=== PATIENT | female | born 1945 | race Caucasian/White ===

== ENCOUNTER 2017-03-12 17:28 | Observation (INO) | payer OTHER ==
[2017-03-12 17:41] VITALS: BMI 25.0
[2017-03-12 18:33] LABS: BASOPHIL 1.1 % (0-2.0); EOSINOPHIL 0.3 % (0-4.5); MCH 25.4 pg (25.7-33.7); MCHC 32.2 g/dl (32.0-36.0); MEAN CELL VOLUME 78.9 fl (80-96); MEAN PLT VOLUME 7.4 fl (7.5-11.1); NEUTROPHILS 67.2 % (42.8-82.8); PLATELET COUNT 236 K/MM3 (134-434); RDW 19.6 % (11.6-15.6); WHITE BLOOD COUNT 4.7 K/mm3 (4.0-10.0)
[2017-03-12 18:46] LABS: INR 1.07 (0.82-1.09); PROTHROMBIN TIME (PATIENT) 12.1 SEC (9.98-11.88)
[2017-03-12 18:56] LABS: ALBUMIN 3.5 g/dl (3.4-5.0); ANION GAP 9 (8-16); BILIRUBIN,TOTAL 0.4 mg/dL (0.2-1.0); CALCIUM 8.6 mg/dL (8.5-10.1); CO2 24 mmol/L (21-32); CREATININE 0.9 mg/dL (0.55-1.02); GLUCOSE,RANDOM 143 mg/dL (74-106); MAGNESIUM 1.3 mg/dL (1.8-2.4); SGOT/AST 12 U/L (15-37); SGPT/ALT 23 U/L (12-78); TOT PROT 6.2 g/dl (6.4-8.2)
[2017-03-12 18:59] LABS: ALK PHOS 53 U/L (45-117); CPK 26 IU/L (26-192); TROPONIN I < 0.02 ng/ml (0.00-0.05)
--- NOTE | 2017-03-12 20:50 | PDOC ---
History of Present Illness - General History Source: Patient, Family Exam Limitations: No Limitations <Tomasz Gerber - Last Filed: 03/12/17 20:50> <Sabra Mckeon - Last Filed: 03/13/17 02:00> - General Chief Complaint: Syncope/Near Syncope Stated Complaint: Syncope/Near Syncope Time Seen by Provider: 03/12/17 17:40 - History of Present Illness Initial Comments: 03/12/17 20:50 The patient is a 71 year old female brought via EMS, with a significant past medical history of Ovarian CA (chemo last week), HTN and anemia, who presents to the emergency department after a syncope episode today. She reports that today she exerted herself more than shes had during her chemo treatment. She notes that she was out shopping with her daughter when she became weak and lightheaded just prior to losing consciousness. According to the daughter, the patient went in and out of consciousness a total of 3 times. The daughter denies any post ictal period and the patient notes that she does not remember much. She states that she has been anemic during the 18 week time period she was receiving chemo, and thus has received a blood transfusion twice. The patient denies chest pain, shortness of breath, headache, fever, chills, nausea, vomit, diarrhea and constipation. Denies dysuria, frequency, urgency and hematuria. Family history: Father; Colon CA, Sister; Brain CA Allergies: None Past surgical history: Total hysterectomy Social history: No alcohol, tobacco or drug use reported (Tomasz Gerber) Past History <Tomasz Gerber - Last Filed: 03/12/17 20:50> - Past Medical History Cancer: Yes (ovarian) COPD: No HTN: Yes - Suicide/Smoking/Psychosocial Hx Smoking History: Former smoker Have you smoked in the past 12 months: No If you are a former smoker, when did you quit?: 1.5 years ago Information on smoking cessation initiated: No <Sabra Mckeon - Last Filed: 03/13/17 02:00> - Past Medical History Allergies/Adverse Reactions: Allergies Allergy/AdvReac Type Severity Reaction Status Date / Time No Known Allergies Allergy Verified 03/12/17 18:40 Home Medications: Ambulatory Orders Atorvastatin Ca [Lipitor] 20 mg PO HS 03/12/17 Azilsartan Medoxomil [Edarbi] 80 mg PO DAILY 03/12/17 Famotidine [Pepcid] 40 mg PO DAILY 03/12/17 Iron Polysaccharide Complex [Ferrex 150] 150 mg PO DAILY 03/12/17 Review of Systems - Review of Systems Able to Perform ROS?: Yes <Tomasz Gerber - Last Filed: 03/12/17 20:50> <Sabra Mckeon - Last Filed: 03/13/17 02:00> - Review of Systems Comments:: 03/12/17 20:51 GENERAL/CONSTITUTIONAL: (+) Weakness. No fever or chills. HEAD, EYES, EARS, NOSE AND THROAT: No change in vision. No ear pain or discharge. No sore throat.- CARDIOVASCULAR: (+) Lightheadedness and syncope. No chest pain or shortness of breath RESPIRATORY: No cough, wheezing, or hemoptysis. GASTROINTESTINAL: No nausea, vomiting, diarrhea or constipation. GENITOURINARY: No dysuria, frequency, or change in urination. MUSCULOSKELETAL: No joint or muscle swelling or pain. No neck or back pain. SKIN: No rash NEUROLOGIC: No headache, vertigo, or change in strength/sensation. ENDOCRINE: No increased thirst. No abnormal weight change HEMATOLOGIC/LYMPHATIC: No anemia, easy bleeding, or history of blood clots. ALLERGIC/IMMUNOLOGIC: No hives or skin allergy. (Tomasz Gerber) *Physical Exam <Tomasz Gerber - Last Filed: 03/12/17 20:50> <Sabra Mckeon - Last Filed: 03/13/17 02:00> - Vital Signs Last Vital Signs Temp Pulse Resp BP Pulse Ox 98.3 F 71 17 133/75 98 03/12/17 17:37 03/12/17 22:36 03/12/17 22:36 03/12/17 22:36 03/12/17 21:00 - Physical Exam Comments: 03/12/17 20:51 GENERAL: Awake, alert, and fully oriented, in no acute distress HEAD: No signs of trauma, normocephalic, atraumatic EYES: PERRLA, EOMI, sclera anicteric, conjunctiva clear ENT: Auricles normal inspection, hearing grossly normal, nares patent, oropharynx clear without exudates. Moist mucosa NECK: Normal ROM, supple, no lymphadenopathy, JVD, or masses LUNGS: No distress, speaks full sentences, clear to auscultation bilaterally HEART: Regular rate and rhythm, normal S1 and S2, no murmurs, rubs or gallops, peripheral pulses normal and equal bilaterally. ABDOMEN: Soft, nontender, normoactive bowel sounds. No guarding, no rebound. No masses EXTREMITIES : Normal inspection, Normal range of motion, no edema. No clubbing or cyanosis. NEUROLOGICAL: Cranial nerves II through XII grossly intact. Normal speech, normal gait, no focal sensorimotor deficits SKIN: Warm, Dry, normal turgor, no rashes or lesions noted. (Tomasz Gerber) ED Treatment Course - LABORATORY CBC & Chemistry Diagram: 03/12/17 18:11 03/12/17 18:11 <Tomasz Gerber - Last Filed: 03/12/17 20:50> - LABORATORY CBC & Chemistry Diagram: 03/12/17 18:11 03/12/17 18:11 <Sabra Mckeon - Last Filed: 03/13/17 02:00> - ADDITIONAL ORDERS Additional order review: Laboratory Results 03/12/17 03/12/17 18:11 18:11 PT with INR 12.10 H INR 1.07 Sodium 142 Potassium 4.4 Chloride 109 H Carbon Dioxide 24 Anion Gap 9 BUN 20 H Creatinine 0.9 Creat Clearance w eGFR > 60 Random Glucose 143 H Calcium 8.6 Magnesium 1.3 L Total Bilirubin 0.4 AST 12 L ALT 23 Alkaline Phosphatase 53 Creatine Kinase 26 Troponin I < 0.02 Total Protein 6.2 L Albumin 3.5 03/12/17 18:11 RBC 3.27 L MCV 78.9 L MCHC 32.2 RDW 19.6 H MPV 7.4 L Neutrophils % 67.2 Lymphocytes % 23.3 Monocytes % 8.1 Eosinophils % 0.3 Basophils % 1.1 - RADIOLOGY Radiology Studies Ordered: Category Date Time Status HEAD CT WITHOUT CONTRAST [CT] Stat CT Scan 03/12/17 18:08 Completed CHEST - PA [RAD] Stat Radiology 03/12/17 18:07 Completed Medical Decision Making <Tomasz Gerber - Last Filed: 03/12/17 20:50> <Sabra Mckeon - Last Filed: 03/13/17 02:00> - Medical Decision Making 03/13/17 01:56 71-year-old female brought in by ambulance after having a witnessed syncopal episode. The patient was seen earlier today and her hospitalist medical director office. She finished her 18th week of came on , March 08 for her ovarian cancer. Patient states that she was shopping with her daughter and became very flushed and sat down. Her daughter witnessed her unresponsive. Her eyes rolled back in her head. Her daughter said that she seemed to be gasping for air and grunting and shaking. This stopped and then repeated. That episode lasted less than 2 minutes and when the patient became responsive. She cannot recall anything. There was no head trauma. EKG did not show any evidence of acute ischemia on her first troponin was negative. CAT scan of the head did not show any masses or edema or shift or bleed or acute infarct. Patient did not have any neurological deficits. I spoke with Dr. Morgan who is covering for Dr. Lopez, the patient's oncologist, and he said sometimes there can have atypical seizures with chemotherapy, but the patient finished her chemotherapy on . Case is discussed with the hospitalist and admitted to telemetry. I spoke with the neurologist, Dr. Jaeger who will consult on this patient in the morning -ekg has no evidence of acute ischemia.neg trop imp sync pe (Sabra Mckeon) *DC/Admit/Observation/Transfer <Tomasz Gerber - Last Filed: 03/12/17 20:50> - Discharge Dispostion Admit: Yes <Sabra Mckeon - Last Filed: 03/13/17 02:00> Diagnosis at time of Disposition: Syncope Qualifiers: Syncope type: unspecified Qualified Code(s): R55 - Syncope and collapse Ovarian cancer Qualifiers: Laterality: unspecified laterality Qualified Code(s): C56.9 - Malignant neoplasm of unspecified ovary - Attestations Scribe Attestion: 03/12/17 20:51 Documentation prepared by Tomasz Gerber, acting as biomedical field service engineer for Sabra Mckeon MD (Tomasz Gerber)
--- NOTE | 2017-03-12 20:58 | HP ---
CHIEF COMPLAINT: PCP: HISTORY OF PRESENT ILLNESS: ER course was notable for: (1) (2) (3) Recent Travel: PAST MEDICAL HISTORY: PAST SURGICAL HISTORY: Social History: Smoking: Alcohol: Drugs: Family History: Allergies No Known Allergies Allergy (Verified 03/12/17 18:40) HOME MEDICATIONS: Home Medications Medication Instructions Recorded Atorvastatin Ca [Lipitor] 20 mg PO HS 03/12/17 Azilsartan Medoxomil [Edarbi] 80 mg PO DAILY 03/12/17 Famotidine [Pepcid] 40 mg PO DAILY 03/12/17 Iron Polysaccharide Complex 150 mg PO DAILY 03/12/17 [Ferrex 150] REVIEW OF SYSTEMS CONSTITUTIONAL: Absent: fever, chills, diaphoresis, generalized weakness, malaise, loss of appetite, weight change HEENT: Absent: rhinorrhea, nasal congestion, throat pain, throat swelling, difficulty swallowing, mouth swelling, ear pain, eye pain, visual changes CARDIOVASCULAR: Absent: chest pain, syncope, palpitations, irregular heart rate, lightheadedness , peripheral edema RESPIRATORY: Absent: cough, shortness of breath, dyspnea with exertion, orthopnea, wheezing, stridor, hemoptysis GASTROINTESTINAL: Absent: abdominal pain, abdominal distension, nausea, vomiting, diarrhea, constipation, melena, hematochezia GENITOURINARY: Absent: dysuria, frequency, urgency, hesitancy, hematuria, flank pain, genital pain MUSCULOSKELETAL: Absent: myalgia, arthralgia, joint swelling, back pain, neck pain SKIN: Absent: rash, itching, pallor HEMATOLOGIC/IMMUNOLOGIC: Absent: easy bleeding, easy bruising, lymphadenopathy, frequent infections ENDOCRINE: Absent: unexplained weight gain, unexplained weight loss, heat intolerance, cold intolerance NEUROLOGIC: Absent: headache, focal weakness or paresthesias, dizziness, unsteady gait, seizure, mental status changes, bladder or bowel incontinence PSYCHIATRIC: Absent: anxiety, depression, suicidal or homicidal ideation, hallucinations. PHYSICAL EXAMINATION Vital Signs - 24 hr 03/12/17 17:37 Temperature 98.3 F Pulse Rate 77 Respiratory 18 Rate Blood Pressure 120/84 O2 Sat by Pulse 100 Oximetry (%) GENERAL: Awake, alert, and fully oriented, in no acute distress. HEAD: Normal with no signs of trauma. EYES: Pupils equal, round and reactive to light, extraocular movements intact, sclera anicteric, conjunctiva clear. No lid lag. EARS, NOSE, THROAT: Ears normal, nares patent, oropharynx clear without exudates. Moist mucous membranes. NECK: Normal range of motion, supple without lymphadenopathy, JVD, or masses. LUNGS: Breath sounds equal, clear to auscultation bilaterally. No wheezes, and no crackles. No accessory muscle use. HEART: Regular rate and rhythm, normal S1 and S2 without murmur, rub or gallop. ABDOMEN: Soft, nontender, not distended, normoactive bowel sounds, no guarding, no rebound, no masses. No hepatomegaly or splenomegaly. MUSCULOSKELETAL: Normal range of motion at all joints. No bony deformities or tenderness. No CVA tenderness. UPPER EXTREMITIES: 2+ pulses, warm, well-perfused. No cyanosis. No clubbing. No peripheral edema. LOWER EXTREMITIES: 2+ pulses, warm, well-perfused. No calf tenderness. No peripheral edema. NEUROLOGICAL: Cranial nerves II-XII intact. Normal speech. Normal gait. PSYCHIATRIC: Cooperative. Good eye contact. Appropriate mood and affect. SKIN: Warm, dry, normal turgor, no rashes or lesions noted, normal capillary refill. Laboratory Results - last 24 hr 03/12/17 03/12/17 03/12/17 18:11 18:11 18:11 WBC 4.7 RBC 3.27 L Hgb 8.3 L Hct 25.8 L MCV 78.9 L MCH 25.4 L MCHC 32.2 RDW 19.6 H Plt Count 236 MPV 7.4 L Neutrophils % 67.2 Lymphocytes % 23.3 Monocytes % 8.1 Eosinophils % 0.3 Basophils % 1.1 PT with INR 12.10 H INR 1.07 Sodium 142 Potassium 4.4 Chloride 109 H Carbon Dioxide 24 Anion Gap 9 BUN 20 H Creatinine 0.9 Creat Clearance w eGFR > 60 Random Glucose 143 H Calcium 8.6 Magnesium 1.3 L Total Bilirubin 0.4 AST 12 L ALT 23 Alkaline Phosphatase 53 Creatine Kinase 26 Troponin I < 0.02 Total Protein 6.2 L Albumin 3.5 ASSESSMENT/PLAN:
--- NOTE | 2017-03-12 22:56 | HP ---
Admitting History and Physical - Primary Care Physician PCP: Dedra Oneill - Admission History of Present Illness: 71 year old female brought via EMS, with a significant past medical history of Ovarian CA (chemo last week), HTN and anemia, who presents to the emergency department after a syncope episode today. She reports that today she exerted herself more than shes had during her chemo treatment. She notes that she was out shopping with her daughter when she became weak and lightheaded just prior to losing consciousness. According to the daughter, the patient went in and out of consciousness a total of 3 times. The daughter denies any post ictal period and the patient notes that she does not remember much. She states that she has been anemic during the 18 week time period she was receiving chemo, and thus has received a blood transfusion twice. - Past Medical History Cardiovascular: Yes: HTN Additional Past Medical History: ovarian ca - Smoking History Smoking history: Former smoker Have you smoked in the past 12 months: No If you are a former smoker, when did you quit?: 1.5 years ago Home Medications - Allergies Allergies/Adverse Reactions: Allergies Allergy/AdvReac Type Severity Reaction Status Date / Time No Known Allergies Allergy Verified 03/12/17 18:40 - Home Medications Home Medications: Ambulatory Orders Atorvastatin Ca [Lipitor] 20 mg PO HS 03/12/17 Azilsartan Medoxomil [Edarbi] 80 mg PO DAILY 03/12/17 Famotidine [Pepcid] 40 mg PO DAILY 03/12/17 Iron Polysaccharide Complex [Ferrex 150] 150 mg PO DAILY 03/12/17 Physical Examination Vital Signs: Vital Signs Temperature 98.3 F 03/12/17 17:37 Pulse Rate 71 03/12/17 22:36 Respiratory Rate 17 03/12/17 22:36 Blood Pressure 133/75 03/12/17 22:36 O2 Sat by Pulse Oximetry (%) 98 03/12/17 21:00 Constitutional: Yes: No Distress HENT: Yes: Atraumatic Neck: Yes: Supple Cardiovascular: Yes: Regular Rate and Rhythm Respiratory: Yes: CTA Bilaterally Gastrointestinal: Yes: Normal Bowel Sounds Extremities: Yes: WNL Edema: No Peripheral Pulses WNL: Yes Neurological: Yes: Alert, Oriented Labs: CBC, BMP 03/12/17 18:11 03/12/17 18:11 Imaging - Results X-ray: Report Reviewed Cat Scan: Report Reviewed Problem List - Problems (1) Ovarian cancer Assessment/Plan: s/p chemo stable Code(s): C56.9 - MALIGNANT NEOPLASM OF UNSPECIFIED OVARY Qualifiers: Laterality: unspecified laterality Qualified Code(s): C56.9 - Malignant neoplasm of unspecified ovary (2) Syncope Assessment/Plan: resolved feeling better Code(s): R55 - SYNCOPE AND COLLAPSE Qualifiers: Syncope type: unspecified Qualified Code(s): R55 - Syncope and collapse (3) HTN (hypertension) Assessment/Plan: will start from tomorrow Code(s): I10 - ESSENTIAL (PRIMARY) HYPERTENSION Qualifiers: Hypertension type: essential hypertension Qualified Code(s): I10 - Essential (primary) hypertension (4) Hypercholesterolemia Assessment/Plan: on meds satble Code(s): E78.00 - PURE HYPERCHOLESTEROLEMIA, UNSPECIFIED Assessment/Plan Laboratory Tests 03/12/17 03/12/17 03/12/17 18:11 18:11 18:11 WBC 4.7 RBC 3.27 L Hgb 8.3 L Hct 25.8 L MCV 78.9 L MCH 25.4 L MCHC 32.2 RDW 19.6 H Plt Count 236 MPV 7.4 L Neutrophils % 67.2 Lymphocytes % 23.3 Monocytes % 8.1 Eosinophils % 0.3 Basophils % 1.1 PT with INR 12.10 H INR 1.07 Sodium 142 Potassium 4.4 Chloride 109 H Carbon Dioxide 24 Anion Gap 9 BUN 20 H Creatinine 0.9 Creat Clearance w eGFR > 60 Random Glucose 143 H Calcium 8.6 Magnesium 1.3 L Total Bilirubin 0.4 AST 12 L ALT 23 Alkaline Phosphatase 53 Creatine Kinase 26 Troponin I < 0.02 Total Protein 6.2 L Albumin 3.5 Active Medications Generic Name Dose Route Start Last Admin Trade Name Freq PRN Reason Stop Dose Admin Atorvastatin Calcium 20 mg 03/13/17 22:00 Lipitor - PO HS ROXANNA Heparin Sodium (Porcine) 5,000 unit 03/13/17 10:00 Heparin - SQ BID ROXANNA Non-Formulary Medication 80 mg 03/13/17 10:00 Azilsartan Medoxomil [Edarbi] PO DAILY ROXANNA Non-Formulary Medication 40 mg 03/13/17 10:00 Famotidine [Pepcid] PO DAILY [facility] Polysaccharide Iron Complex 150 mg 03/13/17 10:00 Niferex-150 - PO DAILY ROXANNA
[2017-03-13 02:03] LABS: CPK 27 IU/L (26-192); TROPONIN I < 0.02 ng/ml (0.00-0.05)
[2017-03-13 07:05] LABS: BASOPHIL 2.3 % (0-2.0); EOSINOPHIL 0.4 % (0-4.5); MCH 25.6 pg (25.7-33.7); MCHC 32.4 g/dl (32.0-36.0); MEAN PLT VOLUME 7.2 fl (7.5-11.1); PLATELET COUNT 213 K/MM3 (134-434); RDW 19.6 % (11.6-15.6); WHITE BLOOD COUNT 3.4 K/mm3 (4.0-10.0)
[2017-03-13 07:45] LABS: ALBUMIN 3.2 g/dl (3.4-5.0); ANION GAP 9 (8-16); BILIRUBIN,TOTAL 0.6 mg/dL (0.2-1.0); CALCIUM 8.8 mg/dL (8.5-10.1); CO2 23 mmol/L (21-32); CREATININE 0.7 mg/dL (0.55-1.02); GLUCOSE,RANDOM 100 mg/dL (74-106); SGOT/AST 11 U/L (15-37); SGPT/ALT 19 U/L (12-78)
[2017-03-13 07:46] LABS: ALK PHOS 46 U/L (45-117); TOT PROT 5.8 g/dl (6.4-8.2)
[2017-03-13 08:33] LABS: CPK 22 IU/L (26-192); TROPONIN I < 0.02 ng/ml (0.00-0.05)
[2017-03-13] MEDS ORDERED: PATIENT'S OWN MEDICATION (NON-FORMULARY) (Azilsartan Medoxomil [Edarbi] 80 MG) PO SCH (10:00)
--- NOTE | 2017-03-13 10:21 | CONSULT ---
Consult - text type - Consultation Consultation Note: Neurology History of Present Illness The patient is a 71 year old female brought via EMS, with a significant past medical history of Ovarian CA (chemo last week), HTN and anemia, who presents to the emergency department after a syncope episode yestreday. She reported that she exerted herself more than shes had during her chemo treatment. She notes that she was out shopping with her daughter when she became weak and lightheaded just prior to losing consciousness. According to the daughter, the patient went in and out of consciousness a total of 3 times. The daughter denies any post ictal period and the patient notes that she does not remember much. She states that she has been anemic during the 18 week time period she was receiving chemo, and thus has received a blood transfusion twice. She does not have a history of seizures. CT head reviewed and without acute changes. Patient at baseline and no deficits. Past History - Past Medical History Cancer: Yes (ovarian) COPD: No HTN: Yes - Suicide/Smoking/Psychosocial Hx Smoking History: Former smoker Have you smoked in the past 12 months: No If you are a former smoker, when did you quit?: 1.5 years ago Information on smoking cessation initiated: No - Past Medical History Allergies/Adverse Reactions: Allergies Allergy/AdvReac Type Severity Reaction Status Date / Time No Known Allergies Allergy Verified 03/12/17 18:40 Home Medications: Ambulatory Orders Atorvastatin Ca [Lipitor] 20 mg PO HS 03/12/17 Azilsartan Medoxomil [Edarbi] 80 mg PO DAILY 03/12/17 Famotidine [Pepcid] 40 mg PO DAILY 03/12/17 Iron Polysaccharide Complex [Ferrex 150] 150 mg PO DAILY 03/12/17 Review of Systems GENERAL/CONSTITUTIONAL: (+) Weakness. No fever or chills. HEAD, EYES, EARS, NOSE AND THROAT: No change in vision. No ear pain or discharge. No sore throat.- CARDIOVASCULAR: (+) Lightheadedness and syncope. No chest pain or shortness of breath RESPIRATORY: No cough, wheezing, or hemoptysis. GASTROINTESTINAL: No nausea, vomiting, diarrhea or constipation. GENITOURINARY: No dysuria, frequency, or change in urination. MUSCULOSKELETAL: No joint or muscle swelling or pain. No neck or back pain. SKIN: No rash NEUROLOGIC: No headache, vertigo, or change in strength/sensation. ENDOCRINE: No increased thirst. No abnormal weight change HEMATOLOGIC/LYMPHATIC: No anemia, easy bleeding, or history of blood clots. ALLERGIC/IMMUNOLOGIC: No hives or skin allergy. *Physical Exam Vital Signs Temperature 98.3 F 03/12/17 17:37 Pulse Rate 86 03/13/17 06:52 Respiratory Rate 18 03/13/17 06:52 Blood Pressure 135/78 03/13/17 06:52 O2 Sat by Pulse Oximetry (%) 97 03/13/17 07:10 03/12/17 20:51 GENERAL: Awake, alert, and fully oriented, in no acute distress HEAD: No signs of trauma, normocephalic, atraumatic EYES: PERRLA, EOMI, sclera anicteric, conjunctiva clear ENT: Auricles normal inspection, hearing grossly normal, nares patent, oropharynx clear without exudates. Moist mucosa NECK: Normal ROM, supple, no lymphadenopathy, JVD, or masses LUNGS: No distress, speaks full sentences, clear to auscultation bilaterally HEART: Regular rate and rhythm, normal S1 and S2, no murmurs, rubs or gallops, peripheral pulses normal and equal bilaterally. ABDOMEN: Soft, nontender, normoactive bowel sounds. No guarding, no rebound. No masses EXTREMITIES : Normal inspection, Normal range of motion, no edema. No clubbing or cyanosis. NEUROLOGICAL: Cranial nerves II through XII grossly intact. Normal speech, normal gait, no focal sensorimotor deficits SKIN: Warm, Dry, normal turgor, no rashes or lesions noted. Laboratory Results 03/12/17 03/12/17 18:11 18:11 PT with INR 12.10 H INR 1.07 Sodium 142 Potassium 4.4 Chloride 109 H Carbon Dioxide 24 Anion Gap 9 BUN 20 H Creatinine 0.9 Creat Clearance w eGFR > 60 Random Glucose 143 H Calcium 8.6 Magnesium 1.3 L Total Bilirubin 0.4 AST 12 L ALT 23 Alkaline Phosphatase 53 Creatine Kinase 26 Troponin I < 0.02 Total Protein 6.2 L Albumin 3.5 03/12/17 18:11 RBC 3.27 L MCV 78.9 L MCHC 32.2 RDW 19.6 H MPV 7.4 L Neutrophils % 67.2 Lymphocytes % 23.3 Monocytes % 8.1 Eosinophils % 0.3 Basophils % 1.1 - RADIOLOGY Ct head reviewed Medical Decision Making 71 year old female brought via EMS, with a significant past medical history of Ovarian CA (chemo last week), HTN and anemia, who presents to the emergency department after a syncope episode yestreday. She reported that she exerted herself more than shes had during her chemo treatment. She notes that she was out shopping with her daughter when she became weak and lightheaded just prior to losing consciousness. According to the daughter, the patient went in and out of consciousness a total of 3 times. The daughter denies any post ictal period and the patient notes that she does not remember much. She states that she has been anemic during the 18 week time period she was receiving chemo, and thus has received a blood transfusion twice. She does not have a history of seizures. Would not start AEDs at this time CT head reviewed and without acute changes. Possibly convulsive syncope precipitated by recent chemo Patient at baseline and no deficits. Follow up cardiac work up Carotid Dopplers completed, follow up Monitor BP, maintain < 140/90 Provided info to patient for outpatient follow up Can have EEG outpatient Neurologically stable and no further rec'd at this time
[2017-03-13] MEDS: HEPARIN NA (PORCINE) 5,000 UNITS/ML 1ML VIAL SQ SCH ×2 (10:24→22:00)
[2017-03-13] MEDS: IRON POLYSACCHARIDES 150 MG CAPSULE PO SCH (10:25)
[2017-03-13] MEDS: RANITIDINE HCL 150 MG TABLET (FP) PO SCH (10:25)
--- NOTE | 2017-03-13 10:49 | CON.CARD ---
Consult Consult Specialty:: Cardiology Referred by:: Dr. Oneill Reason for Consultation:: Cardiac evaluation - History of Present Illness Chief Complaint: Syncope History of Present Illness: Patient is a 71 year old female with underlying history of ovarian CA s/p hysterectomy oopherectomy, hypertension and hypercholesterolemia who presents after a syncopal episode. She went to see her Heme/Onc MD at [facility] ( Dr. Lopez) and had blood drawn. She was walking at [facility] [employer] [place] when she felt dizzy and passed out. She was with her daughter when this happened and was found to be clutching her chest at the time and also had some tremors. Currently she denies chest pain, shortness of breath or palpitations. She denies paroxysmal nocturnal dyspnea or orthopnea. She denies fever or chills. She denies headache or lightheadedness. She has not had syncope in the past. She has anemia and has had multiple transfusions. - History Source History Provided By: Patient, Family Member, Medical Record Limitations to Obtaining History: No Limitations - Past Medical History Cardio/Vascular: Yes: HTN, Hyperlipdemia Heme/Onc: Yes: Cancer (Ovarian CA), Current Chemotherapy Endocrine: No: Diabetes Mellitus - Past Surgical History Past Surgical History: Yes: Hysterectomy, Oopherectomy Additional Surgical History: Knee surgery - Alcohol/Substance Use Hx Alcohol Use: No History of Substance Use: reports: None - Smoking History Smoking history: Former smoker Have you smoked in the past 12 months: No If you are a former smoker, when did you quit?: 1.5 years ago Home Medications - Allergies Allergies/Adverse Reactions: Allergies Allergy/AdvReac Type Severity Reaction Status Date / Time No Known Allergies Allergy Verified 03/12/17 18:40 - Home Medications Home Medications: Ambulatory Orders Atorvastatin Ca [Lipitor] 20 mg PO HS 03/12/17 Azilsartan Medoxomil [Edarbi] 80 mg PO DAILY 03/12/17 Famotidine [Pepcid] 40 mg PO DAILY 03/12/17 Iron Polysaccharide Complex [Ferrex 150] 150 mg PO DAILY 03/12/17 Family Disease History - Family Disease History Family Disease History: CA: Father (Colon CA), Sister (Lung CA mets to brain) Review of Systems - Review of Systems Constitutional: denies: Chills, Fever Cardiovascular: denies: Chest Pain, Palpitations, Shortness of Breath Respiratory: denies: Cough, Hemoptysis, Orthopnea, PND, SOB, SOB on Exertion Gastrointestinal: denies: Abdominal Pain, Constipation, Diarrhea, Melena, Nausea , Rectal Bleeding, Vomiting Neurological: reports: Dizziness, Syncope. denies: Headache, Numbness, Seizure , Unsteady Gait, Weakness Vital Signs: Vital Signs Temperature 98.3 F 03/12/17 17:37 Pulse Rate 86 03/13/17 06:52 Respiratory Rate 18 03/13/17 06:52 Blood Pressure 135/78 03/13/17 06:52 O2 Sat by Pulse Oximetry (%) 97 03/13/17 07:10 Neck: Yes: Supple Respiratory: Yes: CTA Bilaterally Gastrointestinal: Yes: Normal Bowel Sounds, Soft. No: Tenderness Cardiovascular: Yes: Regular Rate and Rhythm JVD: No Carotid Bruit: No PMI: Non-Displaced Heart Sounds: Yes: S1, S2. No: Gallop Murmur: No: Systolic Murmur Edema: No - Other Data Labs, Other Data: CBC, BMP 03/13/17 06:35 03/13/17 06:35 INR, PTT INR 1.07 (0.82-1.09) 03/12/17 18:11 Laboratory Results - last 24 hr 03/12/17 03/12/17 03/12/17 18:11 18:11 18:11 WBC 4.7 RBC 3.27 L Hgb 8.3 L Hct 25.8 L MCV 78.9 L MCH 25.4 L MCHC 32.2 RDW 19.6 H Plt Count 236 MPV 7.4 L Neutrophils % 67.2 Lymphocytes % 23.3 Monocytes % 8.1 Eosinophils % 0.3 Basophils % 1.1 PT with INR 12.10 H INR 1.07 Sodium 142 Potassium 4.4 Chloride 109 H Carbon Dioxide 24 Anion Gap 9 BUN 20 H Creatinine 0.9 Creat Clearance w eGFR > 60 Random Glucose 143 H Calcium 8.6 Magnesium 1.3 L Total Bilirubin 0.4 AST 12 L ALT 23 Alkaline Phosphatase 53 Creatine Kinase 26 Troponin I < 0.02 Total Protein 6.2 L Albumin 3.5 03/13/17 03/13/17 03/13/17 01:15 06:35 06:35 WBC 3.4 L RBC 2.93 L Hgb 7.5 L Hct 23.1 L MCV 79.0 L MCH 25.6 L MCHC 32.4 RDW 19.6 H Plt Count 213 MPV 7.2 L Neutrophils % 41.0 L D Lymphocytes % 48.6 H D Monocytes % 7.7 Eosinophils % 0.4 Basophils % 2.3 H PT with INR INR Sodium 142 Potassium 4.2 Chloride 110 H Carbon Dioxide 23 Anion Gap 9 BUN 19 H Creatinine 0.7 D Creat Clearance w eGFR > 60 Random Glucose 100 D Calcium 8.8 Magnesium Total Bilirubin 0.6 D AST 11 L ALT 19 Alkaline Phosphatase 46 Creatine Kinase 27 22 L Troponin I < 0.02 < 0.02 Total Protein 5.8 L Albumin 3.2 L Echo: Pending Imaging - Results Chest X-ray: Report Reviewed Cat Scan: Report Reviewed (Head CT) Ultrasound: Pending (Carotid Doppler) EKG: Report Reviewed Problem List - Problems (1) HTN (hypertension) Code(s): I10 - ESSENTIAL (PRIMARY) HYPERTENSION Qualifiers: Hypertension type: essential hypertension Qualified Code(s): I10 - Essential (primary) hypertension (2) Hypercholesterolemia Code(s): E78.00 - PURE HYPERCHOLESTEROLEMIA, UNSPECIFIED (3) Anemia Code(s): D64.9 - ANEMIA, UNSPECIFIED (4) Ovarian cancer Code(s): C56.9 - MALIGNANT NEOPLASM OF UNSPECIFIED OVARY Qualifiers: Laterality: unspecified laterality Qualified Code(s): C56.9 - Malignant neoplasm of unspecified ovary (5) Syncope Code(s): R55 - SYNCOPE AND COLLAPSE Qualifiers: Syncope type: unspecified Qualified Code(s): R55 - Syncope and collapse Assessment/Plan 1. Syncope, etiology to be determined 2. 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 Hypertension 4. Hypercholesterolemia 5. Ovarian CA post hysterectomy 6. Thyroid mass PLAN: 1. Transthoracic echocardiography to assess LV/RV and valvular function 2. Neuro input noted 3. Carotid Doppler pending 4. Continue statin 5. Holter monitor and continue air bag buffer to rule out higher degree AV block Further plans are to follow Eduardo Camejo MD
[2017-03-13] MEDS: ATORVASTATIN CA 20 MG TABLET (FP) PO SCH (11:20)
--- NOTE | 2017-03-13 13:57 | EKG ---
Test Reason : Blood Pressure : / mmHG Vent. Rate : 073 BPM Atrial Rate : 073 BPM P-R Int : 266 ms QRS Dur : 086 ms QT Int : 390 ms P-R-T Axes : 056 041 048 degrees QTc Int : 429 ms SINUS RHYTHM WITH 1ST DEGREE A-V BLOCK INCOMPLETE RBBB NO PREVIOUS ECGS AVAILABLE REPEAT EKG IF CLINICALLY INDICATED Confirmed by SEDA KEENAN MD ([id number]) on 03/13/2017 1:57:32 PM Referred By: Confirmed By:SEDA KEENAN MD
[2017-03-13] MEDS ORDERED: PT OWN MED DRAWER 7, Y5N ONE (14:12)
--- NOTE | 2017-03-13 16:47 | PN ---
Progress Note, Physician - Current Medication List Current Medications: Active Medications Atorvastatin Calcium (Lipitor -) 20 mg PO DAILY [facility] Last Admin: 03/13/17 11:20 Dose: 20 mg Heparin Sodium (Porcine) (Heparin -) 5,000 unit SQ BID [facility] Last Admin: 03/13/17 10:24 Dose: 5,000 unit Non-Formulary Medication (Azilsartan Medoxomil [Edarbi]) 80 mg PO DAILY [facility] Last Admin: 03/13/17 10:24 Dose: Not Given Polysaccharide Iron Complex (Niferex-150 -) 150 mg PO DAILY [facility] Last Admin: 03/13/17 10:25 Dose: 150 mg Ranitidine HCl (Zantac -) 150 mg PO DAILY [facility] Last Admin: 03/13/17 10:25 Dose: 150 mg - Objective Vital Signs: Vital Signs Temperature 98.1 F 03/13/17 14:00 Pulse Rate 71 03/13/17 14:00 Respiratory Rate 18 03/13/17 12:15 Blood Pressure 136/59 03/13/17 14:00 O2 Sat by Pulse Oximetry (%) 98 03/13/17 12:15 Constitutional: Yes: No Distress HENT: Yes: Atraumatic Neck: Yes: Supple Cardiovascular: Yes: Regular Rate and Rhythm Respiratory: Yes: CTA Bilaterally Gastrointestinal: Yes: Normal Bowel Sounds Extremities: Yes: WNL Neurological: Yes: Alert, Oriented Labs: CBC, BMP 03/13/17 06:35 03/13/17 06:35 INR, PTT INR 1.07 (0.82-1.09) 03/12/17 18:11 Problem List - Problems (1) Ovarian cancer Assessment/Plan: s/p chemo stable Code(s): C56.9 - MALIGNANT NEOPLASM OF UNSPECIFIED OVARY Qualifiers: Laterality: unspecified laterality Qualified Code(s): C56.9 - Malignant neoplasm of unspecified ovary (2) Syncope Assessment/Plan: resolved feeling better carotid us done report reviewed awiting cardiology input and further plans Code(s): R55 - SYNCOPE AND COLLAPSE Qualifiers: Syncope type: unspecified Qualified Code(s): R55 - Syncope and collapse (3) HTN (hypertension) Assessment/Plan: will start from tomorrow Code(s): I10 - ESSENTIAL (PRIMARY) HYPERTENSION Qualifiers: Hypertension type: essential hypertension Qualified Code(s): I10 - Essential (primary) hypertension (4) Hypercholesterolemia Assessment/Plan: on meds satble Code(s): E78.00 - PURE HYPERCHOLESTEROLEMIA, UNSPECIFIED
[2017-03-13] MEDS ORDERED: ATORVASTATIN CA 20 MG TABLET (FP) PO SCH (22:00)
[2017-03-14 08:07] VITALS: BP 146/67; PULSE 67; TEMP 97.9
[2017-03-14] MEDS: RANITIDINE HCL 150 MG TABLET (FP) PO SCH (09:40)
[2017-03-14] MEDS: IRON POLYSACCHARIDES 150 MG CAPSULE PO SCH (09:41)
[2017-03-14] MEDS: ATORVASTATIN CA 20 MG TABLET (FP) PO SCH (09:41)
[2017-03-14] MEDS: HEPARIN NA (PORCINE) 5,000 UNITS/ML 1ML VIAL SQ SCH (09:44)
--- NOTE | 2017-03-14 09:45 | PN ---
Progress Note (short form) - Note Progress Note: Neurology History of Present Illness The patient is a 71 year old female brought via EMS, with a significant past medical history of Ovarian CA (chemo last week), HTN and anemia, who presents to the emergency department after a syncope episode yestreday. She reported that she exerted herself more than shes had during her chemo treatment. She notes that she was out shopping with her daughter when she became weak and lightheaded just prior to losing consciousness. According to the daughter, the patient went in and out of consciousness a total of 3 times. The daughter denies any post ictal period and the patient notes that she does not remember much. She states that she has been anemic during the 18 week time period she was receiving chemo, and thus has received a blood transfusion twice. She does not have a history of seizures. CT head reviewed and without acute changes. Patient at baseline and no deficits. CD completed and reviewed, 50-69% stenosis b/l. Echo completed and reviewed and Lv function normal, EF normal, nml LV size. Active Medications Atorvastatin Calcium (Lipitor -) 20 mg PO DAILY [facility] Last Admin: 03/13/17 11:20 Dose: 20 mg Heparin Sodium (Porcine) (Heparin -) 5,000 unit SQ BID [facility] Last Admin: 03/13/17 22:00 Dose: 5,000 unit Non-Formulary Medication (Azilsartan Medoxomil [Edarbi]) 80 mg PO DAILY [facility] Last Admin: 03/13/17 10:24 Dose: Not Given Polysaccharide Iron Complex (Niferex-150 -) 150 mg PO DAILY [facility] Last Admin: 03/13/17 10:25 Dose: 150 mg Ranitidine HCl (Zantac -) 150 mg PO DAILY [facility] Last Admin: 03/13/17 10:25 Dose: 150 mg *Physical Exam Vital Signs Period Temp Pulse Resp BP Sys/De Paz Pulse Ox Last 24 Hr 97.7 F-99.1 F 67-76 18-18 125-157/55-85 95-98 03/12/17 20:51 GENERAL: Awake, alert, and fully oriented, in no acute distress HEAD: No signs of trauma, normocephalic, atraumatic EYES: PERRLA, EOMI, sclera anicteric, conjunctiva clear ENT: Auricles normal inspection, hearing grossly normal, nares patent, oropharynx clear without exudates. Moist mucosa NECK: Normal ROM, supple, no lymphadenopathy, JVD, or masses LUNGS: No distress, speaks full sentences, clear to auscultation bilaterally HEART: Regular rate and rhythm, normal S1 and S2, no murmurs, rubs or gallops, peripheral pulses normal and equal bilaterally. ABDOMEN: Soft, nontender, normoactive bowel sounds. No guarding, no rebound. No masses EXTREMITIES : Normal inspection, Normal range of motion, no edema. No clubbing or cyanosis. NEUROLOGICAL: Cranial nerves II through XII grossly intact. Normal speech, normal gait, no focal sensorimotor deficits SKIN: Warm, Dry, normal turgor, no rashes or lesions noted. CBCD WBC 3.4 K/mm3 (4.0-10.0) L 03/13/17 06:35 RBC 2.93 M/mm3 (3.60-5.2) L 03/13/17 06:35 Hgb 7.5 GM/dL (10.7-15.3) L 03/13/17 06:35 Hct 23.1 % (32.4-45.2) L 03/13/17 06:35 MCV 79.0 fl (80-96) L 03/13/17 06:35 MCHC 32.4 g/dl (32.0-36.0) 03/13/17 06:35 RDW 19.6 % (11.6-15.6) H 03/13/17 06:35 Plt Count 213 K/MM3 (134-434) 03/13/17 06:35 MPV 7.2 fl (7.5-11.1) L 03/13/17 06:35 CMP Sodium 142 mmol/L (136-145) 03/13/17 06:35 Potassium 4.2 mmol/L (3.5-5.1) 03/13/17 06:35 Chloride 110 mmol/L (98-107) H 03/13/17 06:35 Carbon Dioxide 23 mmol/L (21-32) 03/13/17 06:35 Anion Gap 9 (8-16) 03/13/17 06:35 BUN 19 mg/dL (7-18) H 03/13/17 06:35 Creatinine 0.7 mg/dL (0.55-1.02) D 03/13/17 06:35 Creat Clearance w eGFR > 60 (>60) 03/13/17 06:35 Calcium 8.8 mg/dL (8.5-10.1) 03/13/17 06:35 Total Bilirubin 0.6 mg/dL (0.2-1.0) D 03/13/17 06:35 AST 11 U/L (15-37) L 03/13/17 06:35 ALT 19 U/L (12-78) 03/13/17 06:35 Alkaline Phosphatase 46 U/L (45-117) 03/13/17 06:35 Total Protein 5.8 g/dl (6.4-8.2) L 03/13/17 06:35 Albumin 3.2 g/dl (3.4-5.0) L 03/13/17 06:35 - RADIOLOGY Ct head reviewed CD and Echo reviewed Medical Decision Making 71 year old female brought via EMS, with a significant past medical history of Ovarian CA (chemo last week), HTN and anemia, who presents to the emergency department after a syncope episode yestreday. She reported that she exerted herself more than shes had during her chemo treatment. She notes that she was out shopping with her daughter when she became weak and lightheaded just prior to losing consciousness. According to the daughter, the patient went in and out of consciousness a total of 3 times. The daughter denies any post ictal period and the patient notes that she does not remember much. She states that she has been anemic during the 18 week time period she was receiving chemo, and thus has received a blood transfusion twice. She does not have a history of seizures. Would not start AEDs at this time CT head reviewed and without acute changes. CD and Echo reviewed Cardiology follow up Patient at baseline and no deficits. Monitor BP, maintain < 140/90 Provided info to patient for outpatient follow up Can have EEG outpatient Neurologically stable and no further rec'd at this time
--- NOTE | 2017-03-14 12:11 | PN ---
Progress Note (short form) - Note Progress Note: Chief Complaint: Events noted, notes reviewed, patient denies any dizziness or lightheadedness, Patient denies any chest discomfort or dyspnea History of Present Illness: Seen and examined on telemetry earlier today. Events noted, notes reviewed, patient denies any dizziness or lightheadedness, Patient denies any chest discomfort or dyspnea Carotid Doppler study results were noted. Echocardiography report is pending. Medications: Atorvastatin Ca [Lipitor] 20 mg PO HS 03/12/17 Azilsartan Medoxomil [Edarbi] 80 mg PO DAILY 03/12/17 Famotidine [Pepcid] 40 mg PO DAILY 03/12/17 Iron Polysaccharide Complex [Ferrex 150] 150 mg PO DAILY 03/12/17 Review of Systems - Review of Systems Constitutional: denies: Chills, Fever Cardiovascular: denies: Chest Pain, Palpitations, Shortness of Breath Respiratory: denies: Cough, Hemoptysis, Orthopnea, PND, SOB, SOB on Exertion Gastrointestinal: denies: Abdominal Pain, Constipation, Diarrhea, Melena, Nausea , Rectal Bleeding, Vomiting Neurological: reports: Dizziness, Syncope. denies: Headache, Numbness, Seizure , Unsteady Gait, Weakness Vital Signs: Last Vital Signs Temp Pulse Resp BP Pulse Ox 97.9 F 67 18 146/67 96 03/14/17 08:06 03/14/17 08:06 03/14/17 08:06 03/14/17 08:06 03/14/17 08:04 Intake & Output 03/11/17 03/12/17 03/13/17 03/14/17 23:59 23:59 23:59 23:59 Intake Total 370 130 Balance 370 130 Weight 137 lb 137 lb Neck: Supple Respiratory: Clear to auscultation and percussion Bilaterally Cardiovascular: S1 and S2 Regular Rate and Rhythm Grade 1/6 systolic apical murmur Gastrointestinal: Soft benign Normal Bowel Sounds Ext: No Edema Labs: CBC, BMP 03/13/17 06:35 03/13/17 06:35 Hepatic Panel Total Bilirubin 0.6 mg/dL (0.2-1.0) D 03/13/17 06:35 AST 11 U/L (15-37) L 03/13/17 06:35 ALT 19 U/L (12-78) 03/13/17 06:35 Alkaline Phosphatase 46 U/L (45-117) 03/13/17 06:35 Albumin 3.2 g/dl (3.4-5.0) L 03/13/17 06:35 Assessment/Plan ASSESSMENT: 1. Syncope, probably vaso-vagal, Unlikely to be neuro-cardiogenic syncope or vaso-depressor/cardio-inhibitory 2. AV block, Mobitz 1 AV block 3. Hypertension 4. Hypercholesterolemia 5. Ovarian CA post hysterectomy 6. Thyroid mass PLAN: 1. Continue angiotensin receptor florinda therapy (Edarbi) 2. Continue Lipitor therapy 3. Await report of echocardiography 4. Reviewed in detail with the patient the above-noted clinical presentation and was advised if the above-noted echocardiography revealed normal left ventricular systolic function, patient can be discharged home for further evaluation and management on an outpatient basis (if syncopal episodes recur further evaluation is recommended including probable tilt table testing and extended monitoring) Patient was advised to followup with her primary care provider in [place], [place] Dao Denise M.D.
--- NOTE | 2017-03-14 15:49 | HOL ---
Hook-up date: 2017-03-13 12:36:00 Duration: 21:24:00 Test Indications: SYNCOPE, MOBITZ 1 AV BLOCK Medications: 18275 QRS complexes 3 Ventricular ectopics which represent <1 % of total QRS comp. * Supraventricular ectopics which represent % of total QRS comp. * Paced QRS complexs which represent % of total QRS comp. * % of Time Classified as Noise VENTRICULAR ECTOPY 3 Isolated 0 Bigeminal Cycles 0 Couplets 0 Runs 0 Beats in Runs * Beats LONGEST at * BPM at :: -- * Beats FASTEST at * BPM at :: -- SUPRAVENTRICULAR ECTOPY * Isolated * Couplets * Runs * Beats in Runs * Beats LONGEST at * BPM at :: -- * Beats FASTEST at * BPM at :: -- HEART RATES 45 MIN at 03:41:12 2017-03-14 73 AVG 116 MAX at 08:39:58 2017-03-14 LONGEST RR 1.912 secs at 05:29:13 2017-03-14 HOLTER RAN 21 HOURS AND [address] DE[address] AVB FREQUENT EPISODES OF MOBITZ TYPE i HEART BLOCK ( [place]) Confirmed by CARLOS LOTT, SWEETIE ([id number]) on 03/14/2017 3:48:58 PM Referred By: Светлана MEZA Overread By: SWEETIE GONZALEZ MD
--- NOTE | 2017-03-14 18:00 | DS ---
Physical Examination Vital Signs: Vital Signs Temperature 97.9 F 03/14/17 08:06 Pulse Rate 67 03/14/17 08:06 Respiratory Rate 18 03/14/17 08:06 Blood Pressure 146/67 03/14/17 08:06 O2 Sat by Pulse Oximetry (%) 96 03/14/17 08:04 Labs: CBC, BMP 03/13/17 06:35 03/13/17 06:35 Discharge Summary Reason For Visit: MALIGNANT NEOPLASM OF OVARY/SYNCOPE - Instructions Referrals: Eliseo Aguilar MD [Primary Care Provider] - Disposition: HOME - Home Medications Comprehensive Discharge Medication List: Ambulatory Orders Atorvastatin Ca [Lipitor] 20 mg PO HS 03/12/17 Azilsartan Medoxomil [Edarbi] 80 mg PO DAILY 03/12/17 Famotidine [Pepcid] 40 mg PO DAILY 03/12/17 Iron Polysaccharide Complex [Ferrex 150] 150 mg PO DAILY 03/12/17 dc genaro fu pmd and cardiology
== END 2017-03-14 10:53 | disposition home or self-care (01) ==
LOC: JER 17:28 → INTOOBSV 21:05 → JERBED 21:05 → J4W 03-13 12:03
PROVIDERS: ADMIT Internal Medicine; ATTEND Internal Medicine
PROC: 3E013GC Introduction of Other Therapeutic Substance into Subcutaneous Tissue, Percutaneous Approach (ICD-10-PCS; principal; 2017-03-12)
DX: R55 Syncope and collapse (principal); C56.9 Malignant neoplasm of unspecified ovary; I10 Essential (primary) hypertension; D64.9 Anemia, unspecified; Z92.21 Personal history of antineoplastic chemotherapy; Z87.891 Personal history of nicotine dependence; E78.00 Pure hypercholesterolemia, unspecified
CPT/HCPCS: 36415; 70450-TC; 71010-TC; 80053; 82550; 83735; 84484; 85025; 85610; 93005; 93010; 93225; 93226; 93306-TC; 93880-TC; 96372; 99285-25; G0378; J1644